=== PATIENT | male | born 1990 | race Hispanic/Latino ===

== ENCOUNTER 2017-05-10 08:07 | Emergency (ER) | payer OTHER ==
[2017-05-10] MEDS ORDERED: VOLTAREN PO ONE (12:21)
[2017-05-10] MEDS ORDERED: BACTRIM DS PO ONE (12:21)
[2017-05-10] MEDS ORDERED: NORCO 5/325 PO ONE (12:21)
--- NOTE | 2017-05-10 12:26 | Emergency Department Report ---
- General Chief complaint: Wound/Laceration Stated complaint: BROKE JAW,STAPH,TUBE PEG Time Seen by Provider: 05/10/17 11:42 Source: patient, family Mode of arrival: Ambulatory Limitations: No Limitations - History of Present Illness Initial comments: Patient is a 26-year-old man here with a history of MRSA. Complains of pain in the left leg. Has a lesion appears to be MRSA with necrotic eschar at the mid tibia. 2-3 cm of surrounding redness around it. Patient also complains of broken jaw which she sustained approximately 2 weeks ago. Denies fevers chills. MD complaint: abscess/boil -: days(s) (5) Tetanus Up to Date: yes Location: LLE Severity: moderate Quality: stabbing Improves with: none Worsens with: movement Context: recent illness, recent antibiotic, IVDA (denies injection to the site) Associated symptoms: denies other symptoms - Related Data Previous Rx's Medication Instructions Recorded Last Taken Type ALPRAZolam [Xanax TAB] 0.25 mg PO BID PRN #10 tab 05/10/17 Unknown Rx Diclofenac Sodium [Diclofenac 100 mg PO DAILY PRN #20 tab 05/10/17 Unknown Rx Sodium ER] Sulfamethoxazole/Trimethoprim 1 each PO ONCE #20 tablet 05/10/17 Unknown Rx [Bactrim DS TAB] Allergies Allergy/AdvReac Type Severity Reaction Status Date / Time No Known Allergies Allergy Verified 05/10/17 08:24 Abscess Boil HPI - HPI Chief Complaint: Wound/Laceration Stated Complaint: BROKE JAW,STAPH,TUBE PEG Time Seen by Provider: 05/10/17 11:42 Home Medications: Previous Rx's Medication Instructions Recorded Last Taken Type ALPRAZolam [Xanax TAB] 0.25 mg PO BID PRN #10 tab 05/10/17 Unknown Rx Diclofenac Sodium [Diclofenac 100 mg PO DAILY PRN #20 tab 05/10/17 Unknown Rx Sodium ER] Sulfamethoxazole/Trimethoprim 1 each PO ONCE #20 tablet 05/10/17 Unknown Rx [Bactrim DS TAB] Allergies/Adverse Reactions: Allergies Allergy/AdvReac Type Severity Reaction Status Date / Time No Known Allergies Allergy Verified 05/10/17 08:24 ED Review of Systems ROS: Stated complaint: BROKE JAW,STAPH,TUBE PEG Other details as noted in HPI Comment: All other systems reviewed and negative Constitutional: denies: chills, fever ENT: dental pain. denies: ear pain Respiratory: cough, orthopnea, shortness of breath Cardiovascular: denies: chest pain, palpitations Gastrointestinal: denies: abdominal pain, nausea, vomiting Musculoskeletal: denies: back pain Skin: denies: rash, lesions Neurological: denies: headache, weakness Psychiatric: anxiety ED Past Medical Hx - Past Medical History Hx Asthma: Yes Additional medical history: MRSA. SUBSTANCE ABUSE - Surgical History Additional Surgical History: inguinal hernia repair. RIGHT HAND - Family History Family history: no significant - Social History Smoking Status: Light Tobacco Smoker Substance Use Type: None - Medications Home Medications: Home Medications Medication Instructions Recorded Confirmed Last Taken Type ALPRAZolam [Xanax TAB] 0.25 mg PO BID PRN #10 tab 05/10/17 Unknown Rx Diclofenac Sodium [Diclofenac 100 mg PO DAILY PRN #20 tab 05/10/17 Unknown Rx Sodium ER] Sulfamethoxazole/Trimethoprim 1 each PO ONCE #20 tablet 05/10/17 Unknown Rx [Bactrim DS TAB] ED Physical Exam - General Limitations: No Limitations - Head Head exam: Present: atraumatic, normocephalic - ENT ENT exam: Present: other (left jaw tender and swollen, mild trismus) - Neck Neck exam: Present: normal inspection. Absent: tenderness, meningismus, lymphadenopathy - Respiratory Respiratory exam: Present: normal lung sounds bilaterally, respiratory distress - Cardiovascular Cardiovascular Exam: Present: regular rate, normal rhythm - Expanded Lower Extremity Exam Left Lower Leg exam: Present: deformity (there is a small lesion on the left lower leg, likely MRSA abscess) Neuro vascular tendon exam: Present: no vascular compromise. Absent: pulse deficit, motor deficit, sensory deficit ED Course Vital Signs 05/10/17 05/10/17 05/10/17 08:18 11:33 12:22 Temperature 97.8 F 98.7 F Pulse Rate 102 H 69 Respiratory 18 18 20 Rate Blood Pressure 122/79 Blood Pressure 113/57 [Left] O2 Sat by Pulse 98 100 100 Oximetry 05/10/17 13:11 Temperature Pulse Rate Respiratory 20 Rate Blood Pressure Blood Pressure [Left] O2 Sat by Pulse Oximetry ED Medical Decision Making - Lab Data Result diagrams: 05/10/17 12:52 05/10/17 12:52 - Medical Decision Making Patient with likely MRSA cellulitis. He's had multiple MRSA infections in the past and has a leg wound consistent with likely MRSA. He is afebrile here and I do not palpate an abscess on the wound. Plan to treat with oral antibiotics. Of note his mother is requesting oral narcotics for this patient. I have told her that I would not give him a prescription for oral narcotics as I understand his plate with the jaw fracture I do not feel that narcotics is medically warranted for a patient who is a recovering IV drug abuser. White count normal. Plan to discharge with Bactrim and mupirocin and diclofenac with a short course of Xanax for anxiety. Discussed the need to follow-up with oral surgery for his jaw. Portions of this chart were dictated with dictation software. There may be dictation errors contained within this note. Critical care attestation.: If time is entered above; I have spent that time in minutes in the direct care of this critically ill patient, excluding procedure time. ED Disposition Clinical Impression: Cellulitis Disposition: DC-01 TO HOME OR SELFCARE Is pt being admited?: No Condition: Stable Instructions: Cellulitis (ED) Prescriptions: ALPRAZolam [Xanax TAB] 0.25 mg PO BID PRN #10 tab PRN Reason: Anxiety Diclofenac Sodium [Diclofenac Sodium ER] 100 mg PO DAILY PRN #20 tab PRN Reason: Pain Sulfamethoxazole/Trimethoprim [Bactrim DS TAB] 1 each PO ONCE #20 tablet Referrals: PRIMARY CARE, [Primary Care Provider] - 3-5 Days
[2017-05-10] MEDS ORDERED: VOLTAREN DR PO ONE (13:00)
[2017-05-10 13:06] LABS: Hematocrit 39.4 % (35.5-45.6); Mean Corpuscular HGB Conc 33 % (32-34); Mean Corpuscular Hemoglobin 30 pg (28-32); Mean Corpuscular Volume 92 fl (84-94); Platelet Count 386 K/mm3 (140-440); Red Blood Count 4.28 M/mm3 (3.65-5.03); Red Cell Distribution Width 13.6 % (13.2-15.2); White Blood Count 8.7 K/mm3 (4.5-11.0)
[2017-05-10 13:49] LABS: Anion Gap 17 mmol/L; BUN/Creatinine Ratio 16.66; Blood Urea Nitrogen 10 mg/dL (9-20); Calcium 8.7 mg/dL (8.4-10.2); Carbon Dioxide 28 mmol/L (22-30); Chloride 98.1 mmol/L (98-107); Glucose 110 mg/dL (75-100); Potassium 4.2 mmol/L (3.6-5.0); Sodium 139 mmol/L (137-145)
[2017-05-10 14:04] VITALS: BP 110/60
== END 2017-05-10 14:04 | disposition home or self-care (01) ==
LOC: ED 08:07
DX: L03.116 Cellulitis of left lower limb (principal); J45.909 Unspecified asthma, uncomplicated; Z72.0 Tobacco use
CPT/HCPCS: 36415; 80048; 85027; 99283